=== PATIENT | male | born 1965 | race Caucasian/White ===

== ENCOUNTER 2023-03-10 17:28 | Emergency (ER) | payer OTHER ==
[~2023-03-10] VITALS: Ht 182.9 cm; Wt 83.9 kg
[2023-03-10 17:53] VITALS: BP 143/85
== END 2023-03-10 19:16 | disposition home or self-care (01) ==
LOC: ER 17:28
DX: T63.441A Toxic effect of venom of bees, accidental (unintentional), initial encounter (principal)
CPT/HCPCS: 99282